=== PATIENT | male | born 1945 | race Caucasian/White ===

== ENCOUNTER 2023-02-15 19:21 | Emergency (ER) | payer OTHER, MEDICARE ==
[2023-02-15] MEDS ORDERED: Sodium Chloride 0.9% 1,000 ML IV ONE (19:34)
[2023-02-15 20:15] LABS: ANION GAP 12.5 mmol/L (5-15); CHLORIDE,CL 102 mmol/L (98-107); ESTIMATED GFR 62 mL/min (>=60); SODIUM,NA 139 mmol/L (136-145)
[2023-02-16 04:30] VITALS: BP 170/107; PULSE 79
== END 2023-02-15 23:10 | disposition home or self-care (01) ==
LOC: VM.ED 19:21
DX: S22.39XD Fracture of one rib, unspecified side, subsequent encounter for fracture with routine healing (principal); E78.00 Pure hypercholesterolemia, unspecified; I10 Essential (primary) hypertension; E11.40 Type 2 diabetes mellitus with diabetic neuropathy, unspecified; Z79.84 Long term (current) use of oral hypoglycemic drugs; Z79.899 Other long term (current) drug therapy; Z79.82 Long term (current) use of aspirin; Z88.5 Allergy status to narcotic agent; Z88.0 Allergy status to penicillin; W19.XXXA Unspecified fall, initial encounter
CPT/HCPCS: 36415; 70450; 71250; 80053; 81001; 82550; 84484; 85025; 85610; 93005; 93010; 96360; 99283; 99284-25; J7030